=== PATIENT | male | born 1950 | race Caucasian/White ===

== ENCOUNTER → 2020-08-04 | Outpatient (CLI) | payer OTHER, MEDICARE | LOC: SJCVC 13:34 | PROVIDERS: ATTEND Internal Medicine | DX: R94.31 Abnormal electrocardiogram [ECG] [EKG] (principal); I49.1 Atrial premature depolarization; E78.5 Hyperlipidemia, unspecified; I10 Essential (primary) hypertension; Z79.82 Long term (current) use of aspirin; Z79.899 Other long term (current) drug therapy ==

== ENCOUNTER → 2020-08-25 | Outpatient (CLI) | payer OTHER, MEDICARE | LOC: SJCVCIMAG 07:45 → SJCVC 11:20 | PROVIDERS: ATTEND Internal Medicine | DX: I08.8 Other rheumatic multiple valve diseases (principal); R00.0 Tachycardia, unspecified; I49.3 Ventricular premature depolarization; I49.1 Atrial premature depolarization; I10 Essential (primary) hypertension; E78.5 Hyperlipidemia, unspecified; Z79.82 Long term (current) use of aspirin; Z79.899 Other long term (current) drug therapy ==